=== PATIENT | female | born 1960 | race Caucasian/White ===

== ENCOUNTER 2017-06-09 06:40 | Day surgery (SDC) | payer OTHER ==
[~2017-06-09] VITALS: Ht 157.5 cm; Wt 77.1 kg
[~2017-06-09 06:40] MED LIST: ADVIL200 M1 PO; AZITHROMYCIN250 MG PO; GUAIFENESIN-CO118 ML PO; IRON325 M1; LEVOTHROID25 MCG PO; LEVOTHYROXINE50 MCG PO; NORCO 10-325 T1 EACH PO; NYQUIL D COLD295 ML PO; PEPTO-BISM262 MG/15 PO; PERCOCET 5-3251 EACH PO; PERCOCET 7.5-31 EACH PO; PRILOSEC20 MG PO; PROAIR HFA8.5 GM IH; VICODIN 5-3001 EACH PO; VITAMIN B COMP1 EACH PO; ZOFRAN8 MG PO; ZOLOFT100 MG PO; [UNRECOGNIZED DRUG - OTHER] PO
[2017-06-09] MEDS ORDERED: SERTRALINE HCL25 MG PO (06:50)
[2017-06-09] MEDS ORDERED: HYDROCHLOROTHIA25 MG PO (06:51)
[2017-06-09] MEDS ORDERED: SPIRIVA18 MCG INH (06:52)
[2017-06-09] MEDS ORDERED: VOLTAREN100 GM TOP (06:52)
[2017-06-09] MEDS ORDERED: VENTOLIN HFA18 GM INH (06:52)
--- NOTE | 2017-06-09 08:05 | NUR ---
PRODUCTION ZONE LEADER ORDERS ABLUTEROL BREATHING TREATMENT. GIVEN ORDERED. CALL LIGHT WITHIN REACH. AT BEDSIDE. BED RAILS UP.
--- NOTE | 2017-06-09 08:41 | NUR ---
06/09/17 0841 Tammie Glover 0830-PATIENT ARRIVED TO PACU ON 4L NC O2 SAT 97% PATIENT REACTIVE OPENS EYES. ST. PATIENT HAS COUGH. 0835-PATIENT AWAKE RA O2 SAT 94% PATIENT REPORTS HAS HAD STOMACH PAIN AND SWELLING ASKING FOR PAIN MEDICATION "SINCE MAEVE ASSOCIATE COUNSEL CAN'T PRESCRIBE HER ANY" DISCUSSED AIR INTO COLON AND PASSING FLATUS.
--- NOTE | 2017-06-09 19:17 | EKG ---
[facility] [address] [facility] [place] [address] Signed Normal sinus rhythm Normal ECG No previous ECGs available Confirmed by MARJORIE LYN MD ([id number]) on 06/09/2017 7:17:10 PM Electronically Signed By: MARJORIE LYN MD 06/09/17 191 PATIENT NAME: JORDON RICO Electrocardiogram DATE OF : 60 PHYSICIAN: MARJORIE LYN MD REPORT #: [id number] REPORT IS CONFIDENTIAL AND NOT TO BE RELEASED WITHOUT AUTHORIZATION
--- NOTE | 2017-06-10 07:24 | NUR ---
PT ALERT, ORIENTED AND SUPPORTED BY HER . ROUTINE SCOPE-HER FIRST. I NOTED SOME ANXIOUSNESS EXPLAINED THE PROCESS FOR TODAY, PT REQUESTED PRAYER. WILL FOLLOW NEEDED
--- NOTE | 2017-06-16 09:25 | OR ---
[facility] [address] [place], [place] [address] Signed DATE OF OPERATION: 06/09/2017 SURGEON: Scot Reddy MD PREOPERATIVE DIAGNOSES: 1. Mother with a history of colonic polyps in her 50s or 60s. 2. Generalized abdominal pain. 3. Constipation and bloating. 4. Weight gain of 20 pounds. POSTOPERATIVE DIAGNOSES: 1. Moderate internal and external hemorrhoids. 2. Minimal sigmoid diverticulosis. 3. 4 mm polyp at 15 cm. PROCEDURE: Colonoscopy with hot biopsy. ESTIMATED BLOOD LOSS: None. INDICATIONS: Jordon is a 57-year-old female, who over the last year so has had generalized abdominal pain, constipation, and bloating. She has gained about 20 pounds. She also has a family history of colonic polyps in her mother in her 50s or 60s. In addition, Jordon about a year ago has been drug free. She is very proud of that obviously. She also has significant medical history including her COPD. She ended up having a CT scan in November 2015, and it was unremarkable other than her diverticulosis. Given her findings, she was asked to see me for a colonoscopy. In the office, I gave her a pamphlet on colonoscopy and we looked at that together along with the risks including, but not limited to, gas bloating, crampy abdominal pain, bleeding, perforation, requiring surgery, and miss-diagnosis. We also discussed the need for IV conscious sedation given her advanced medical issues including her COPD. We asked that anesthesia provider help us with increased monitoring and sedation with propofol. In the end that proved to be a moore decision. Jordon had expressed understanding and wished to proceed. PROCEDURE NOTE: Jordon was taken into our endoscopy suite and placed in the left lateral decubitus position. Preoperatively, she was given a breathing treatment for her COPD. Nevertheless, she continued to cough throughout the entire procedure. She was given IV Electronically Signed By: SCOT REDDY MD 06/09/17 1113 Electronically Signed By: SCOT REDDY MD 06/23/17 1842 PATIENT NAME: JORDON RICO OPERATIVE REPORT DATE OF : 60 PHYSICIAN: SCOT REDDY MD REPORT #: [id number] REPORT IS CONFIDENTIAL AND NOT TO BE RELEASED WITHOUT AUTHORIZATION [facility] [address] [place] [id number] Signed sedation with propofol per our nurse insurance analyst. Digital rectal exam was performed and she did have some minimal to moderate external hemorrhoids. Her sphincter tone was good. The adult colonoscope was introduced and advanced under direct visualization with camera without difficulty. Fortunately, was technically easy to pass the scope. Her prep was good. The appendiceal orifice and ileocecal valve were easily identified. The scope was then slowly withdrawn. She does have a few diverticula in the sigmoid colon. They were moderate in size, minimal number, and scattered about. At the top of the rectum at 15 cm was a small polyp, which we removed with a hot biopsy forceps. The scope was then retroflexed in the rectum and sure enough, she does have moderate internal hemorrhoid columns as well. After this, the gas was suctioned out and the colonoscope removed. Jordon tolerated the procedure quite well. RECOMMENDATIONS: I will see Jordon back in my office in 7 to 14 days to review her colonoscopy report and pathology report. Scot Reddy MD ALB/MODL /[id number] cc: AMADA Herzog MD Timothy Davidson, MD Electronically Signed By: SCOT REDDY MD 06/09/17 1113 Electronically Signed By: SCOT REDDY MD 06/23/17 1842 PATIENT NAME: JORDON RICO OPERATIVE REPORT DATE OF : 60 PHYSICIAN: SCOT REDDY MD REPORT #: [id number] REPORT IS CONFIDENTIAL AND NOT TO BE RELEASED WITHOUT AUTHORIZATION
== END 2017-06-09 09:07 | disposition home or self-care (01) ==
LOC: DS 06:40
PROVIDERS: Colon & Rectal Surgery
PROC: 0DBE8ZX Excision of Large Intestine, Via Natural or Artificial Opening Endoscopic, Diagnostic (ICD-10-PCS; principal; 2017-06-09 07:30)
DX: K63.5 Polyp of colon (principal); K64.4 Residual hemorrhoidal skin tags; K64.8 Other hemorrhoids; K57.30 Diverticulosis of large intestine without perforation or abscess without bleeding; F32.9 Major depressive disorder, single episode, unspecified; E89.0 Postprocedural hypothyroidism; J44.9 Chronic obstructive pulmonary disease, unspecified; Z90.89 Acquired absence of other organs; Z90.710 Acquired absence of both cervix and uterus; Z98.890 Other specified postprocedural states; Z87.891 Personal history of nicotine dependence; Z88.8 Allergy status to other drugs, medicaments and biological substances
CPT/HCPCS: 00810; 93005; 93010; J2704; J7120

== ENCOUNTER 2017-12-30 21:14 | Emergency (ER) | payer OTHER ==
[~2017-12-30] VITALS: Ht 157.5 cm; Wt 77.1 kg
[~2017-12-30 21:14] MED LIST changes: +HYDROCHLOROTHIA25 MG PO; +SERTRALINE HCL25 MG PO; +SPIRIVA18 MCG INH; +VENTOLIN HFA18 GM INH; +VOLTAREN100 GM TOP
== END 2017-12-31 00:37 | disposition home or self-care (01) ==
LOC: ED 21:14
DX: R07.89 Other chest pain (principal); I10 Essential (primary) hypertension; J44.9 Chronic obstructive pulmonary disease, unspecified; F32.9 Major depressive disorder, single episode, unspecified; Z88.8 Allergy status to other drugs, medicaments and biological substances; Z87.891 Personal history of nicotine dependence; Z79.899 Other long term (current) drug therapy
CPT/HCPCS: 71045; 71260; 74177; 80053; 81001; 83690; 85025; 85379; 96361; 96374; 96375; 99284; J1170; J1885; J2405; J7030; Q9967

== ENCOUNTER 2018-03-06 18:03 | Emergency (ER) | payer OTHER ==
[~2018-03-06] VITALS: Ht 157.5 cm; Wt 77.1 kg
--- OUTSIDE RECORDS SUMMARY | ~2018-03-06 | XMS | Clinical Summary ---
Demographics + + + | Address | [address] | | | [place] [address] | + + + | Home Phone | | + + + | Preferred Language | Unknown | + + + | Marital Status | Legally | + + + | Evangelical Affiliation | Unknown | + + + | Race | Unknown | + + + | Ethnic Group | Unknown | + + + Author + + + | Author | [facility] | | | and [place] | + + + | Organization | [facility] | | | and [place] | + + + | Address | Unknown | + + + | Phone | Unavailable | + + + Support + + +---------+ + | Name | Relationship | Address | Phone | + + +---------+ + | Jf Stone | ECON | Unknown | | + + +---------+ + Care Team Providers + +------+ + | Care Grants Specialist Name | Role | Phone | + +------+ + | Jorge Correa NP | PP | | + +------+ + Allergies + + + + + + | Active Allergy | Reactions | Severity | Noted | Comments | | | | | Date | | + + + + + + | Promethazine | Swelling | High | 05/04/20 | Tongue swelling | | | | | 17 | | + + + + + + Current Medications + + +---------+---------+------+------+-------+ | Prescription | Sig. | Disp. | Refills | Star | End | Statu | | | | | | t | Date | s | | | | | | Date | | | + + +---------+---------+------+------+-------+ | tiotropium | Inhale 2 puffs into | | | | | Activ | | (SPIRIVA RESPIMAT) | the lungs Daily. | | | | | e | | 1.25 mcg/puff | | | | | | | | inhaler | | | | | | | + + +---------+---------+------+------+-------+ | | Take 25 mg by mouth | | | | | Activ | | hydroCHLOROthiazide | Three times a week. | | | | | e | | 25 mg tablet | | | | | | | + + +---------+---------+------+------+-------+ | albuterol | Inhale 2 puffs into | | | | | Activ | | (VENTOLIN HFA) 90 | the lungs every 4 | | | | | e | | mcg/puff inhaler | hours as needed for | | | | | | | | Wheezing. | | | | | | + + +---------+---------+------+------+-------+ | sertraline | Take 150 mg by mouth | | | | | Activ | | (ZOLOFT) 100 mg | Daily. | | | | | e | | tablet | | | | | | | + + +---------+---------+------+------+-------+ | omeprazole | Take 20 mg by mouth | | | | | Activ | | (PRILOSEC) 20 mg | every morning | | | | | e | | capsule | (before breakfast). | | | | | | + + +---------+---------+------+------+-------+ | diclofenac | Apply 4 g topically | | | | | Activ | | (VOLTAREN) 1% GEL | 3 times daily. | | | | | e | + + +---------+---------+------+------+-------+ | docusate sodium | Take 100 mg by mouth | | | | | Activ | | (COLACE) 100 mg | Daily as needed for | | | | | e | | capsule | Constipation. | | | | | | + + +---------+---------+------+------+-------+ | ADVAIR HFA 115-21 | INHALE TWO PUFFS BY | 1 | 3 | 05/0 | | Activ | | MCG/ACT inhaler | MOUTH TWICE DAILY | Inhaler | | 9/20 | | e | | | | | | 18 | | | + + +---------+---------+------+------+-------+ | levothyroxine | Take 100 mcg by | | | 07/2 | | Activ | | (SYNTHROID) 100 mcg | mouth every morning | | | 0/20 | | e | | tablet | (before breakfast). | | | 18 | | | + + +---------+---------+------+------+-------+ Active Problems + + + | Problem | Noted Date | + + + | COPD, moderate (HCC) | 05/04/2017 | + + + Encounters +--------+---------+ + + + | Date | Type | Specialty | Care Team | Description | +--------+---------+ + + + | 01/17/ | Office | | Guzman Acosta, | COPD, moderate (HCC) | | 2017 | Visit | | MD | (Primary Dx) | +--------+---------+ + + + | 12/20/ | Office | | Guzman Acosta, | COPD, moderate (HCC) | | 2017 | Visit | | MD | (Primary Dx); Need | | | | | | for pneumococcal | | | | | | vaccine | +--------+---------+ + + + from Last 3 Months Immunizations + + + + | Name | Dates Previously Given | Next Due | + + + + | INFLUENZA PF 4Y OR | 05/04/2017 | | | >,QUAD DERIVED FROM | | | | TISS-CULT | | | + + + + | INFLUENZA PF | 05/12/2016 | | | QUAD(PED/ADOL/ADULT) | | | | ,PSKT or VIAL | | | + + + + | PNEUMOCOCCAL | 05/18/2017 | | | CONJUGATE 13-VALENT | | | | (PCV13) | | | + + + + | PNEUMOCOCCAL | 12/20/2017 | | | POLYSACCHARIDE | | | | 23-VALENT (PPSV23) | | | + + + + Family History + + +------+ + | Medical History | Relation | Name | Comments | + + +------+ + | No Known Problems | Brother | | | + + +------+ + | No Known Problems | Brother | | | + + +------+ + | Cancer | Father | | primary unknown | + + +------+ + | COPD | Mother | | | + + +------+ + | Cancer | Mother | | breast | + + +------+ + | Suicide | Sister | | | + + +------+ + + +------+ + + | Relation | Name | Status | Comments | + +------+ + + | Brother | | Alive | | + +------+ + + | Brother | | Alive | | + +------+ + + | Father | | | | + +------+ + + | Mother | | Alive | | + +------+ + + | Sister | | | | + +------+ + + Social History + + + +--------+ + | Tobacco Use | Types | Packs/Day | Years | Date | | | | | Used | | + + + +--------+ + | Former Smoker | Cigarettes | 1 | | 12/03/1971 - | | | | | | 07/04/2006 | + + + +--------+ + + +---+---+---+ | Smokeless Tobacco: | | | | | Never Used | | | | + +---+---+---+ + + | Tobacco Cessation: Counseling Given: No | + + + + +---------+ + | Alcohol Use | Drinks/We | oz/Week | Comments | | | ek | | | + + +---------+ + | No | | | 05/04/17: Completed alcohol rehab | + + +---------+ + + + + | Sex Assigned at | Date Recorded | | | | + + + | Not on file | | + + + Last Filed Vital Signs + + + + | Vital Sign | Reading | Time Taken | + + + + | Blood Pressure | 146/92 | 01/17/2018 1321 PDT | + + + + | Pulse | 85 | 01/17/2018 1321 PDT | + + + + | Temperature | - | - | + + + + | Respiratory Rate | - | - | + + + + | Oxygen Saturation | 93% | 01/17/20181320 PDT | + + + + | Inhaled Oxygen | - | - | | Concentration | | | + + + + | Weight | 82.8 kg (182 lb 8.7 | 01/17/20181320 PDT | | | oz) | | + + + + | Height | 157.5 cm (5' 2") | 01/17/20181320 PDT | + + + + | Body Mass Index | 33.39 | 01/17/2018 1321 PDT | + + + + Plan of Treatment +--------+---------+ + + + | Date | Type | Specialty | Care Team | Description | +--------+---------+ + + + | 07/25/ | Office | | Guzman Acosta, | | | 2019 | Visit | | MD Myranda Ramirez | | | | | | [place], [place] | | | | | | [place] | | | | | | [id number] | | | | | | | | +--------+---------+ + + + + + + + + | Health Maintenance | Due Date | Last Done | Comments | + + + + + | Hepatitis C | | | | | Screening | 0 | | | + + + + + | Vaccine: | | | | | Dtap/Tdap/Td (1 - | 9 | | | | Tdap) | | | | + + + + + | Cervical Cancer | | | | | Screening (Pap) | 0 | | | + + + + + | BREAST CANCER | | | | | SCREENING (MAMM Q2 | 0 | | | | YEARS 50-74) | | | | + + + + + | Colorectal Cancer | | | | | Screening | 0 | | | | (Colonoscopy) | | | | + + + + + | Vaccine: Influenza | | 05/04/2017, 05/12/2016 | | | (#1) | 8 | | | + + + + + | Vaccine: | Completed | 12/20/2017 | | | Pneumococcal 19-64 | | | | | (PPSV23 only) Medium | | | | | Risk | | | | + + + + + Results Not on filefrom Last 3 Months Insurance + +--------+ +--------+ +---------+ | Payer | Benefi | Subscriber | Type | Phone | Address | | | t Plan | ID | | | | | | / | | | | | | | Group | | | | | + +--------+ +--------+ +---------+ | [employer] | [employer] | [id number] | Medica | [phone] | | MEDICAID HMO | HEALTH | | id | [address]21 | | | | [place] | | | | | | | [place] | | | | | + +--------+ +--------+ +---------+ + +--------+ +--------+ + + | Guarantor Name | Accoun | Relation to | Date | Phone | Billing Address | | | t Type | Patient | of | | | | | | | | | | + +--------+ +--------+ + + | JORDON RICO | Person | Self [birth year] Home: | [address] | | | al/Fam | | 1960 | [phone] | [address], | | | param | | | [address] | [place] [phone] | + +--------+ +--------+ + +
--- OUTSIDE RECORDS SUMMARY | ~2018-03-06 | XMS | Clinical Summary ---
Demographics + + + | Address | [address] | | | [place] [address] | + + + | Home Phone | | + + + | Preferred Language | Unknown | + + + | Marital Status | Legally | + + + | Evangelical Affiliation | Unknown | + + + | Race | Unknown | + + + | Ethnic Group | Unknown | + + + Author + + + | Author | [facility] | | | and [place] | + + + | Organization | [facility] | | | and [...] Team Providers + +------+ + | Care Lead Handler Name | Role | Phone | + [...] [place] | | | | | | [id number] | | | | | | | [...] | [employer] | [employer] | [id number] | Medica | [phone] | | MEDICAID HMO | HEALTH [...] Self | [birth year] | Home: | [address] | | | al/Fam | | 1960 | [phone] | [address], | | | param | | | [address] | [place] [address] | + +--------+ +--------+ + +
--- OUTSIDE RECORDS SUMMARY | ~2018-03-06 | XMS | Encounter Summary ---
Demographics + + + | Address | [address] | | | [place] [address] | + + + | Home Phone | | + + + | Preferred Language | Unknown | + + + | Marital Status | Legally | + + + | Islam Affiliation | Unknown | + + + | Race | Unknown | + + + | Ethnic Group | Unknown | + + + Author + + + | Author | [facility] | | | and [place] | + + + | Organization | [facility] | | | and [...] Team Providers + +------+ + | Care Web Art Director Name | Role | Phone | + +------+ + | Jorge Correa NP | PCP | | + +------+ + Reason for Visit +--------+ + | Reason | Comments | +--------+ + | COPD | 6 mo follow up | +--------+ + Evaluate & Treat (Routine) + +--------+ + + + + | Status | Reason | Specialty | Diagnoses / | Referred By | Referred To | | | | | Procedures | Contact | Contact | + +--------+ + + + + | Authorized | | Pulmonary | Diagnoses | Madeline, | Dave, | | | | Disease / | Chronic | Jorge Pack, | MD Guzman | | | | Pulmonology | obstructive | [address] | [address] | | | | | pulmonary | [place] | [place], Level | | | | | disease, | [address], | [place] | | | | | unspecified | [address] | [place], [place] | | | | | ([facility]) | [place], | [address] Phone: | | | | | Procedures | [place] [address] | [phone] | | | | | F/U APPT DR | Phone: | Fax: | | | | | BRODIE DAVE | [phone] | [phone] | | | | | 12/20/17 | Fax: | | | | | | | [phone] | | + +--------+ + + + + Encounter Details +--------+---------+ + + + | Date | Type | Department | Care Team | Description | +--------+---------+ + + + | 12/20/ | Office | [facility] | Acosta Guzman, | COPD, moderate (HCC) | | 2018 | Visit | PULMONARY [address] | MD [address] | (Primary Dx); Need | | | | [place], | [place], [address] | for pneumococcal | | | | [place] [address] | [place], [place] | vaccine | | | | [phone] | [address] | | | | | | | | +--------+---------+ + + + Social History + + + [...] | | | + +---+---+---+ + + +---------+ + | Alcohol Use [...] on file | | + + + as of this encounter Last Filed Vital Signs + + + + | Vital Sign | Reading | Time Taken | + + + + | Blood Pressure | 114/88 | 12/20/2017953 PDT | + + + + | Pulse | 97 | 12/20/2017953 PDT | + + + + | Temperature | - | - | + + + + | Respiratory Rate | - | - | + + + + | Oxygen Saturation | 95% | 12/20/2017953 PDT | + + + + | Inhaled Oxygen | - | - | | Concentration | | | + + + + | Weight | 81.5 kg (179 lb 10.8 | 12/20/2017953 PDT | | | oz) | | + + + + | Height | 157.5 cm (5' 2") | 12/20/2017953 PDT | + + + + | Body Mass Index | 32.86 | 12/20/2017953 PDT | + + + + in this encounter Instructions Patient Instructions - Guzman Acosta MD - 12/20/2017 1000 PDT Fluticasone; Salmeterol inhalation aerosol Brand Name: Advair HFA What is this medicine? FLUTICASONE; SALMETEROL (floo TIK a sone; travon ME te role) inhalation is a combination of tw o medicines that decrease inflammation and help to open up the airways of your lungs. It is used to treat asthma. Do NOT use for an acute asthma attack. How should I use this medicine? This medicine is inhaled through the mouth. Follow the directions on the prescription label . Shake well for 5 seconds before each use. After using the inhaler, rinse your mouth with w ater. Make sure not to swallow the water. Take your medicine at regular intervals. Do not ta ke your medicine more often than directed. Do not stop taking except on your doctor's advice . Make sure that you are using your inhaler correctly. Ask you doctor or health care provide r if you have any questions. A special MedGuide will be given to you by the pharmacist with each prescription and refill . Be sure to read this information carefully each time. Talk to your vice president process regarding the use of this medicine in children. While this drug m ay be prescribed for children as young as 12 years of age for selected conditions, precautio ns do apply. What side effects may I notice from receiving this medicine? Side effects that you should report to your doctor or health healthcare liaison as soon as p ossible: allergic reactions like skin rash or hives, swelling of the face, lips, or tongue changes in vision chest pain feeling faint or lightheaded, falls fever or chills irregular heartbeat Side effects that usually do not require medical attention (report to your doctor or health healthcare liaison if they continue or are bothersome): coughing, hoarseness, throat irritation headache nervousness stomach problems stuffy nose tremors What may interact with this medicine? Do not take this medicine with any of the following medications: MAOIs like Carbex, Eldepryl, Marplan, Nardil, and Parnate This medicine may also interact with the following medications: aminophylline or theophylline antiviral medicines for HIV or AIDS diuretics medicines for colds medicines for depression or emotional conditions medicines for fungal infections like ketoconazole and itraconazole medicines for the heart like metoprolol, propanolol medicines for weight loss including some herbal products other medicine for breathing problems pimozide some antibiotics like clarithromycin, erythromycin, levofloxacin, linezolid, and telithr omycin vaccines What if I miss a dose? If you miss a dose, use it as soon as you remember. If it is almost time for your next dose , use only that dose and continue with your regular schedule, spacing doses evenly. Do not u se double or extra doses. Where should I keep my medicine? Keep out of the reach of children. Store at room temperature between 15 and 30 degrees C (59 and 86 degrees F). Store inhaler with the mouthpiece down. Throw away the inhaler when the dose indicator reads 000, or after the expiration date, whichever comes first. What should I tell my health care provider before I take this medicine? They need to know if you have any of these conditions: bone problems immune system problems diabetes heart disease or irregular heartbeat high blood pressure infection pheochromocytoma seizures thyroid disease worsening asthma an unusual or allergic reaction to fluticasone; salmeterol, other corticosteroids, other medicines, foods, dyes, or preservatives or trying to get breast-feeding What should I watch for while using this medicine? Visit your doctor for regular check ups. Tell your doctor or health healthcare liaison if yo ur symptoms do not get better. If your symptoms get worse or if you need your short-acting i nhalers more often, call your doctor right away. Do not use this medicine more than every 12 hours. If you have asthma, be aware that using this medicine may increase your risk of dying from asthma-related problems. Talk to your doctor about the risks and benefits of taking this med icine. NEVER use this medicine for an acute asthma attack. This medicine may increase your risk of getting an infection. Tell your doctor or health ca re professional if you are around anyone with measles or chickenpox, or if you develop sores or blisters that do not heal properly. NOTE:This sheet is a summary. It may not cover all possible information. If you have questi ons about this medicine, talk to your doctor, pharmacist, or health care provider. Copyright 2017 [employer] in this encounter Progress Notes Guzman Acosta MD - 12/20/2017 1000 PDTFormatting of this note may be different from adenike martin. Pulmonary Follow Up 12/20/2017 HPI Caro Alvarez is a 57 y.o. female patient of Jorge Correa NP here today for follo w up of Gold Stage II COPD. The last pulmonary clinic visit was on 06/21/17. Since their last appointment they feel like their breathing issues have been stable. They have not had any acute pulmonary illnesses. The patient has not required a prednisone taper since our last clinic appointment. Likewise Caro has not required antibiotics for a COPD exacerbation since our last clinic appointment. The patient is currently on a daily regimen of Advair, Spiriva and Ventolin for their COPD. for unclear reasons the patient is using Advair on an as-needed basis. It appears that Ad vair was substituted for Symbicort in the past 6 months. They do not feel like this medicat ion regimen is/are controlling their symptoms. Currently she is using their short acting br onchodilator, Ventolin, 2 times a day. Currently the patient is able to walk 2-3 blocks at their own pace on level ground before d eveloping dyspnea. They are exercising regularly. Their typical exercise consists of walking at work. Works at [employer]. Caro are not enrolled in cardiac/pulmonary rehabilitation. They have not completed pulmonary rehabilitation in the past. Caro does cough chronically and does produce mucous. The mucous is white in color. They padgett ve not had hemoptysis since our last appointment. She has not been evaluated for nocturnal oxygen. They have not reported recent symptoms of nasal congestion, runny nose or post nasal drip. The patient have received this year's influenza vaccination. They are up to date with thei r Prevnar 13. Patient denies tobacco use. She notes increased abdominal girth and weight over the last 3 months. The patient's weight is up 8 pounds and 6 ounces since her last clinic appointment . Right upper leg numbness is also noted. I have suggested to the patient that she obtain a primary care provider to discuss her incr eased weight and right lower extremity issues. If her primary care provider cannot be locat ed in her community I have asked her to let us know and we will facilitate finding her 1 her e in [place]. Past Medical History Past Medical History: Diagnosis Date Acid reflux disease Alcohol abuse Arthritis Asthma Bipolar affective disorder (HCC) Chronic bronchitis (HCC) COPD (chronic obstructive pulmonary disease) (HCC) Depression Diverticulosis ACOSTA (dyspnea on exertion) Hepatitis C Hyperlipidemia Hypertension Hypothyroidism Insomnia due to mental condition Leg pain Obesity Umbilical hernia Social History: She reports that she quit smoking about 11 years ago. Her smoking use included Cigarettes. She started smoking about 46 years ago. She smoked 1.00 pack per day. She has never used smo keless tobacco. She reports that she does not drink alcohol or use drugs. Allergies: Allergies Allergen Reactions Promethazine Swelling Tongue swelling Medications: Current Outpatient Prescriptions: ADVAIR HFA 115-21 MCG/ACT inhaler, INHALE TWO PUFFS BY MOUTH TWICE DAILY, Disp: 1 Inha ler, Rfl: 3 albuterol (VENTOLIN HFA) 90 mcg/puff inhaler, Inhale 2 puffs into the lungs every 4 ho urs as needed for Wheezing., Disp: , Rfl: diclofenac (VOLTAREN) 1% GEL, Apply 4 g topically 3 times daily., Disp: , Rfl: docusate sodium (COLACE) 100 mg capsule, Take 100 mg by mouth Daily as needed for Cons tipation., Disp: , Rfl: hydroCHLOROthiazide 25 mg tablet, Take 25 mg by mouth Three times a week., Disp: , Rfl : levothyroxine (SYNTHROID) 50 mcg tablet, Take 50 mcg by mouth every morning (before br eakfast)., Disp: , Rfl: omeprazole (PRILOSEC) 20 mg capsule, Take 20 mg by mouth every morning (before breakfa st)., Disp: , Rfl: sertraline (ZOLOFT) 100 mg tablet, Take 150 mg by mouth Daily., Disp: , Rfl: tiotropium (SPIRIVA RESPIMAT) 1.25 mcg/puff inhaler, Inhale 2 puffs into the lungs Hanna ly., Disp: , Rfl: Immunizations: Immunization History Administered Date(s) Administered INFLUENZA PF 4Y OR >,QUAD DERIVED FROM TISS-CULT 05/04/2017 INFLUENZA PF QUAD(PED/ADOL/ADULT),PSKT or VIAL 05/12/2016 PNEUMOCOCCAL CONJUGATE 13-VALENT (PCV13) 05/18/2017 Objective BP 114/88 | Pulse 97 | Ht 1.575 m (5' 2") | Wt 81.5 kg (179 lb 10.8 oz) | SpO2 95% | B CA 32.86 kg/m Physical Exam Constitutional: She is oriented to person, place, and time and well-developed, well-nourish ed, and in no distress. HENT: Head: Normocephalic. Nose: No mucosal edema. Right sinus exhibits no frontal sinus tenderness. Left sinus exhibi ts no frontal sinus tenderness. Mouth/Throat: Oropharynx is clear and moist and mucous membranes are normal. Neck: Trachea normal. Neck supple. No JVD present. Cardiovascular: Normal rate, regular rhythm, S1 normal and S2 normal. No murmur heard. Pulmonary/Chest: No accessory muscle usage. No respiratory distress. She has decreased venecia th sounds in the right lower field and the left lower field. She has no wheezes. She has no rhonchi. She has no rales. Musculoskeletal: She exhibits no edema. Lymphadenopathy: She has no cervical adenopathy. Neurological: She is alert and oriented to person, place, and time. Gait normal. Skin: Skin is warm and intact. No cyanosis. Nails show no clubbing. Psychiatric: Affect normal. Data: None Assessment 1. COPD Gold stage II. At the time the patient's last appointment 6 months ago she was using a combination of Spiriva, Symbicort and as needed Ventolin. Over the interim Advair w as substituted for Symbicort. Unfortunately however the patient began using Advair as neede d. Some worsening of symptoms has developed. Her weight is also up 8 or so pounds over the st 6 months. Increased abdominal girth is likely impacting diaphragmatic function. I have recommended to the patient that she reinitiate Advair and a scheduled fashion. Caro is also in need of a Pneumovax today. Plan 1. Pneumovax 23 today. 2. Initiate Advair HFA 2 puffs twice daily. Patient counseled the rinse mouth out after A dvair use. 3. Pulmonary clinic follow-up appointment to assess the status of her symptoms in 4 weeks' time. CC: Zachariah Giron this encounter Plan of Treatment +--------+---------+ + + + | Date | Type | Specialty | Care Team | Description | +--------+---------+ + + + | 07/25/ | Office | Pulmonology | Guzman Acosta, | | | 2018 | Visit | | MD Myranda Ramirez | | | | | | [place], [place] [address] | | | | | | [place] | | | | | | [address] | | | | | | | | +--------+---------+ + + + as of this encounter Visit Diagnoses + + | Diagnosis | + + | COPD, moderate (HCC) - Primary | + + | Chronic airway obstruction, not elsewhere classified | + + | Need for pneumococcal vaccine | + + | Need for prophylactic vaccination against streptococcus pneumoniae (pneumococcus) | + +
--- OUTSIDE RECORDS SUMMARY | ~2018-03-06 | XMS | Encounter Summary ---
Demographics + + + | Address | [address] | | | [place] [address] | + + + | Home Phone | | + + + | Preferred Language | Unknown | + + + | Marital Status | Legally | + + + | Moravian Affiliation | Unknown | + + + | Race | Unknown | + + + | Ethnic Group | Unknown | + + + Author + + + | Author | [facility] | | | and [place] | + + + | Organization | [facility] | | | and [...] Team Providers + +------+ + | Care Waste Paper Hammermill Operator Name | Role | Phone | + +------+ + | Jorge Correa NP | PCP | | + +------+ + Reason for Visit +--------+ + | Reason | Comments | +--------+ + | COPD | 1 month follow up | +--------+ + Evaluate & [...] | | | Pulmonology | obstructive | EDUCATION DIRECTOR [address] | | | | | pulmonary | [place] | [place], Level | | | | | disease, | [address], | [place] | | | | | unspecified | [address] | [place] | | | | | ([facility]) | [place], | [address] Phone: | | | | | Procedures | [place] [address] | [phone] | | | | | F/U APPT DR | Phone: | Fax: | | | | | BRODIE ACOSTA | [phone] | [phone] | | | | | 12/20/17 | Fax: | | | | | | | [phone] | | + +--------+ + + + + Encounter Details +--------+---------+ + + + | Date | Type | Department | Care Team | Description | +--------+---------+ + + + | 01/17/ | Office | [facility] | Guzman Acosta, | COPD, moderate (HCC) | | 2018 | Visit | PULMONARY [address] | MD [address] | (Primary Dx) | | | | [place], | [place], [place] | | | | | [place] [address] | [place], [place] | | | | | [phone] | [address] | | | | | | | [...] + | Blood Pressure | 146/92 | 01/17/20181320 PDT | + + + + | Pulse | 85 | 01/17/20181320 PDT | + + + [...] | 82.8 kg (182 lb 8.7 | 01/17/2018 1321 PDT | | | oz) | | + + + + | Height | 157.5 cm (5' 2") | 01/17/2018 1321 PDT | + + + + | Body Mass Index | 33.39 | 01/17/2018 1321 PDT | + + + + in this encounter Instructions Patient Instructions - Guzman Acosta MD - 01/17/2018 1330 PDTFormatting of this note m ay be different from the original. Please get FluVaccines in March 2018 The flu (influenza) is caused by a virus that is easily spread. A fluvaccine protects you and othersfrom the flu. It s best to get a flu shot every year in late summer or early fall, as soon as the vaccine is available in your area. You can get it at your healthcare pr ovider s office or a health clinic. Pharmacies, senior centers, and workplaces often offer flu shots, too. If you want to know if your providerhas the flu vaccine available, or if you have other questions, ask your healthcare provider. Flu facts The flu shot won t give you the flu. The virus that is in the flu shot has been killed (inactivated). The flu can be dangerous even life-threatening. Every year thousands of people fro m complications from the flu. The flu is caused by a virus. It can t be treated with antibiotics. Influenza is not the same as stomach flu, the 24-hour virus that causes vomiting and adeel rrhea. The stomach flu most likely happens because of a GI (gastrointestinal) infection, not the flu. You need to get a flu shot each year. Flu symptoms Flu symptoms tend to come on quickly. They include: Fever Headache Tiredness (fatigue) Cough Sore throat Runny nose Muscle aches Upset stomach and vomiting are not common for adults. Some symptoms such as tiredness and c ough may lastfor manyweeks. How a flu vaccine protects you There are many types (strains) of theflu virus. Medical experts predict which strains are most likely to make people sick each year. Flu shots are made from these strains. When you get a flu vaccine, killed (inactivated)viruses are injected into your body. These can t give you the flu. But they do cause your body to make antibodies to fight these flu strains. If you are exposed to the same strains later in the flu season, the antibodies will fight o ff the germs. Who should get the flu vaccine? The CDC recommends that infants over the age of 6 months and all children and adults should get aflu shot every year. Some people are at an increased risk of developing serious complications from the flu. It i s extremely important that these people get the vaccine. They include those with: Long-term heart and lung conditions Other serious health conditions such as: Endocrine disorders such as diabetes Kidney or liver disorders Weakened immune system from disease or medical treatment. For example, people with HIV o r AIDS, or those taking long-term steroids or medicines to treat cancer. Blood disorders such as sickle cell disease It is also very important that others who have an increased risk of being exposed to the fl u or are around people with increased risk for complications get the vaccine. This includes: Healthcare providers and other staff who provide care in hospitals, nursing homes, home health, and other facilities Household members, including children of people in high-risk groups Types of flu vaccines The flu vaccine is available as a regularand a high-strengthshot. Your healthcare provi prerna will recommend the vaccine that is best for you. Flu shot The flu shot is available in a few different forms. Your healthcare provider will determine which vaccine is right for you. There is a high-dose vaccine for those over age 65 and a va ccine for those with egg allergies. It is safe for most people. Talk with your provider if y ou have had: A severe allergic reaction to a previous flu vaccine Guillain-Farr syndrome. This is a severe paralyzing condition. Nasal spray The nasal spray isnotrecommended for the 8686-0630 flu season. The CDC says the nasal s pray did not seem to protect against the flu over the last several flu seasons. Date Last Reviewed: 05/14/201619997010-9997 [employer]. [address] [place] [address]. All righ ts reserved. This information is not intended as a substitute for professional medical care. Always follow your healthcare professional's instructions. in this encounter Progress Notes Guzman Acosta MD - 01/17/2018 1330 PDTFormatting of this note may be different from adenike martin. Pulmonary Follow Up 01/17/2018 HPI Caro Alvarez is a 57 y.o. female patient of Jorge Correa NP here today for follo w up of Gold Stage II COPD. The last pulmonary clinic visit was on 12/20/17. Since their last appointment they feel like their breathing issues have been decreasing. At the time the patient's last clinic appointm ent she was asked to begin using Advair twice a day and a scheduled fashion. Caro's main complaint is that of persistent though fluctuating right upper quadrant discom fort. Apparently she was recently in the emergency department in [place] in her follow-up appointment with her primary care provider was canceled. They have not had any acute pulmonary illnesses. The patient has not required a prednisone taper since our last clinic appointment. Likewise Caro has not required antibiotics for a COPD exacerbation since our last clinic appointment. The patient is currently on a daily regimen of Advair and Spiriva for their COPD. They do feel like this medication regimen is/are controlling their symptoms. Currently she is using their short acting bronchodilator, Ventolin, 1 times a day. Currently the patient is able to walk 3-4 blocks at their own pace on level ground before d eveloping dyspnea. They are not exercising regularly. Their typical exercise consists of wor garland at [employer]. Caro are not enrolled in cardiac/pulmonary rehabilitation. They have no t completed pulmonary rehabilitation in the past. Caro does cough chronically and does produce mucous. The mucous is yellow in color. They h ave not had hemoptysis since our last appointment. She has not been evaluated for nocturnal oxygen. They have not reported recent symptoms of nasal congestion, runny nose or post nasal drip. The patient have received this year's influenza vaccination. They are up to date with thei r Pneumovax and Prevnar 13. Patient remains abstinent tobacco. The patient's weight is up 3 pounds and 13 ounces since her last clinic appointment. Past Medical History Past Medical History: Diagnosis [...] week., Disp: , Rfl : levothyroxine (SYNTHROID) 100 mcg tablet, Take 100 mcg by mouth every morning (before breakfast)., Disp: , Rfl: omeprazole (PRILOSEC) 20 mg capsule, Take 20 mg by mouth every morning (before break st)., Disp: , Rfl: sertraline (ZOLOFT) 100 mg tablet, Take 150 mg by mouth Daily., Disp: , Rfl: tiotropium (SPIRIVA RESPIMAT) 1.25 mcg/puff inhaler, Inhale 2 puffs into the lungs Hanna ly., Disp: , Rfl: Immunizations: Immunization History Administered Date(s) Administered INFLUENZA PF 4Y OR >,QUAD DERIVED FROM TISS-CULT 05/04/2017 INFLUENZA PF QUAD(PED/ADOL/ADULT),PSKT or VIAL 05/12/2016 PNEUMOCOCCAL CONJUGATE 13-VALENT (PCV13) 05/18/2017 PNEUMOCOCCAL POLYSACCHARIDE 23-VALENT (PPSV23) 12/20/2017 Objective BP (!) 146/92 | Pulse 85 | Ht 1.575 m (5' 2") | Wt 82.8 kg (182 lb 8.7 oz) | SpO2 93% C omment: room air | BMI 33.39 kg/m Physical Exam Constitutional: She is oriented [...] COPD Gold stage II. At the time of the patient's last clinic appointment Caro was a sked to use Advair and a scheduled fashion in addition to Spiriva. The patient subsequently reports improvement of her symptoms. Ms. Alvarez is up-to-date with respect to her seasonal influenza vaccination, Prevnar and Pn eumovax. 2. Right upper quadrant discomfort in association with intermittent nausea. The patient apparently is in the process of following up with her primary care provider regarding these symptoms. Plan 1. Seasonal influenza vaccination is recommended for March 2018. 2. Patient will continue to use Advair twice daily and Spiriva once daily. Ventolin as ne eded. 3. The interval between pulmonary clinic follow-up appointments will be lengthened to 6 mo nths. CC: Zachariah Giron this encounter Plan of Treatment +--------+---------+ + + + | Date | Type | Specialty | Care Team | Description | +--------+---------+ + + + | 07/25/ | Office | Pulmonology | Guzman Acosta, | | | 2018 | Visit | | MD Whitmore Smith | | | | | | [place], Level II | | | | | | [place] | | | | | | [id number] | | | | | | | | +--------+---------+ + + + as of this encounter Visit Diagnoses + + | Diagnosis | + + | COPD, moderate (HCC) - Primary | + + | Chronic airway obstruction, not elsewhere classified | + +
--- OUTSIDE RECORDS SUMMARY | ~2018-03-06 | XMS | Encounter Summary ---
Demographics + + + | Address | [address] | | | [place] [address] | + + + | Home Phone | | + + + | Preferred Language | Unknown | + + + | Marital Status | Legally | + + + | Sikh Affiliation | Unknown | + + + | Race | Unknown | + + + | Ethnic Group | Unknown | + + + Author + + + | Author | [facility] | | | and [place] | + + + | Organization | [facility] | | | and [...] Team Providers + +------+ + | Care Facility Specialist Name | Role | Phone | [...] | | | Pulmonology | obstructive | MANAGER CHILD [address] | | | | | pulmonary | [place] | [place], Level | | | | | disease, | [address], | [place] | | | | | unspecified | [address] | [place] | | | | | ([facility]) | [place], | [address] Phone: | | | | | Procedures | [place] [address] | [phone] | | | | | F/U APPT DR | Phone: | Fax: | | | | | BRODIE ACOSTA | [phone] | [phone] | | | | | 12/20/17 | Fax: | | | | | | | [phone] | | + +--------+ + + + + Encounter Details +--------+---------+ + + + | Date | Type | Department | Care Team | Description | +--------+---------+ + + + | 01/17/ | Office | [facility] | Guzman Acosta, | COPD, moderate (HCC) | | 2018 | Visit | PULMONARY [address] | MD [address] | (Primary Dx) | | | | [place], | [place], [place] | | | | | [place] [address] | [place], [place] | | | | | [phone] | [address] | | | | | | | [...] spray The nasal spray isnotrecommended for the 0401-4056 flu season. The CDC says the nasal s pray did not seem to protect against the flu over the last several flu seasons. Date Last Reviewed: 05/14/201619994159-5909 [employer]. [address] [place] [address]. All righ ts reserved. This information is [...] was recently in the emergency department in [place] in her follow-up appointment with her primary [...] typical exercise consists of wor garland at [employer]. Caro are not enrolled in cardiac/pulmonary rehabilitation. [...] 2018 | Visit | | MD Whitmore Ranger | | | | | | [place], Level II | | | | | | [place] | | | | | | [phone] | | | | | | | | +--------+---------+ + + + as of this encounter Visit Diagnoses + + | Diagnosis | + + | COPD, moderate (HCC) - Primary | + + | Chronic airway obstruction, not elsewhere classified | + +
--- OUTSIDE RECORDS SUMMARY | ~2018-03-06 | XMS | Encounter Summary ---
Demographics + + + | Address | [address] | | | [place] [address] | + + + | Home Phone | | + + + | Preferred Language | Unknown | + + + | Marital Status | Legally | + + + | Orthodoxy Affiliation | Unknown | + + + | Race | Unknown | + + + | Ethnic Group | Unknown | + + + Author + + + | Author | [facility] | | | and [place] | + + + | Organization | [facility] | | | and [...] Team Providers + +------+ + | Care Medicaid Specialist Name | Role | Phone | [...] | | | Pulmonology | obstructive | CREW BOAT OPERATOR [address] | | | | | pulmonary | [place] | [place], Level | | | | | disease, | [address], | [place] | | | | | unspecified | [address] | [place], [place] | | | | | ([facility]) | [place], | [address] Phone: | | | | | Procedures | [place] [address] | [phone] | | | | | F/U APPT DR | Phone: | Fax: | | | | | BRODIE DAVE | [phone] | [phone] | | | | | 12/20/17 | Fax: | | | | | | | [phone] | | + +--------+ + + + + Encounter Details +--------+---------+ + + + | Date | Type | Department | Care Team | Description | +--------+---------+ + + + | 12/20/ | Office | [facility] | Acosta Guzman, | COPD, moderate (HCC) | | 2018 | Visit | PULMONARY [address] | [address] | (Primary Dx); Need | | | | [place], | [place], Level II | for pneumococcal | | | | [place] [address] | [place], [place] | vaccine | | | | [phone] | [address] | | | | | | | [...] information carefully each time. Talk to your senior cobol developer regarding the use of this medicine in children. While this drug m ay be prescribed for children as young as 12 years of age for selected conditions, precautio ns do apply. What side effects may I notice from receiving this medicine? Side effects that you should report to your doctor or health career transition specialist as soon as p ossible: allergic reactions like skin rash or hives, swelling of the face, lips, or tongue changes in vision chest pain feeling faint or lightheaded, falls fever or chills irregular heartbeat Side effects that usually do not require medical attention (report to your doctor or health career transition specialist if they continue or are bothersome): coughing, [...] check ups. Tell your doctor or health career transition specialist if yo ur symptoms do not get [...] consists of walking at work. Works at [employer]. Caro are not enrolled in cardiac/pulmonary rehabilitation. [...] facilitate finding her 1 her e in [place]. Past Medical History Past Medical History: Diagnosis [...] 10.8 oz) | SpO2 95% | B [place] 32.86 kg/m Physical Exam Constitutional: She is [...] [place] | | | | | | [place], [place] | | | | | | [place] | | | | | | [address] | | | | | | | [...]
== END 2018-03-06 20:52 | disposition home or self-care (01) ==
LOC: ED 18:03
DX: F10.129 Alcohol abuse with intoxication, unspecified (principal); J44.9 Chronic obstructive pulmonary disease, unspecified; I10 Essential (primary) hypertension; F32.9 Major depressive disorder, single episode, unspecified; Z87.891 Personal history of nicotine dependence; Z79.899 Other long term (current) drug therapy; Z79.51 Long term (current) use of inhaled steroids; Y90.8 Blood alcohol level of 240 mg/100 ml or more
CPT/HCPCS: 36415; 80053; 80176; 81001; 85025; 96374; 99284; G0480; J3411; J7030

== ENCOUNTER 2018-08-23 18:26 | Emergency (ER) | payer OTHER ==
[~2018-08-23] VITALS: Ht 157.5 cm; Wt 77.1 kg
[2018-08-23] MEDS ORDERED: PREDNISONE20 MG PO (20:20)
[2018-08-23] MEDS ORDERED: IPRAT-ALBUT 0.5-3 ML INH (20:20)
[2018-08-23] MEDS ORDERED: TRUNEB NEBULIZ1 EACH INH (20:22)
== END 2018-08-23 20:55 | disposition home or self-care (01) ==
LOC: ED 18:26
DX: J44.0 Chronic obstructive pulmonary disease with (acute) lower respiratory infection (principal); J20.9 Acute bronchitis, unspecified; I10 Essential (primary) hypertension; F32.9 Major depressive disorder, single episode, unspecified; Z86.19 Personal history of other infectious and parasitic diseases; Z90.710 Acquired absence of both cervix and uterus; Z88.8 Allergy status to other drugs, medicaments and biological substances; Z79.899 Other long term (current) drug therapy
CPT/HCPCS: 71046; 80053; 85025; 87502; 94640; 96361; 96374; 99284-25; G0480; J2930; J7030

== ENCOUNTER 2018-09-27 18:28 | Emergency (ER) | payer OTHER ==
[~2018-09-27] VITALS: Ht 157.5 cm; Wt 77.1 kg
--- OUTSIDE RECORDS SUMMARY | ~2018-09-27 | XMS | Clinical Summary ---
Demographics + + + | Address | [address] | | | [place] [address] | + + + | Home Phone | | + + + | Preferred Language | Unknown | + + + | Marital Status | Legally | + + + | Restorationist Affiliation | Unknown | + + + | Race | Unknown | + + + | Ethnic Group | Unknown | + + + Author + + + | Author | [facility] | | | and [place] | + + + | Organization | [facility] | | | [...] Team Providers + +------+ + | Care Damper Worker Name | Role | Phone | + [...] | + + + + + + Medications + + + +---------+------+------+-------+ | Medication | Sig | Dispensed | Refills | Star | End | Statu | | | | | | t | Date | s | | | | | | Date | | | + + + +---------+------+------+-------+ | tiotropium | Inhale 2 puffs into | | 0 | | | Activ | | (SPIRIVA RESPIMAT) | the lungs Daily. | | | | | e | | 1.25 mcg/puff | | | | | | | | inhaler | | | | | | | + + + +---------+------+------+-------+ | | Take 25 mg by mouth | | 0 | | | Activ | | hydroCHLOROthiazide | Three times a week. | | | | | e | | 25 mg tablet | | | | | | | + + + +---------+------+------+-------+ | albuterol | Inhale 2 puffs into | | 0 | | | Activ | | (VENTOLIN HFA) 90 | the lungs every 4 | | | | | e | | mcg/puff inhaler | hours as needed for | | | | | | | | Wheezing. | | | | | | + + + +---------+------+------+-------+ | sertraline | Take 150 mg by mouth | | 0 | | | Activ | | (ZOLOFT) 100 mg | Daily. | | | | | e | | tablet | | | | | | | + + + +---------+------+------+-------+ | omeprazole | Take 20 mg by mouth | | 0 | | | Activ | | (PRILOSEC) 20 mg | every morning | | | | | e | | capsule | (before breakfast). | | | | | | + + + +---------+------+------+-------+ | diclofenac | Apply 4 g topically | | 0 | | | Activ | | (VOLTAREN) 1% GEL | 3 times daily. | | | | | e | + + + +---------+------+------+-------+ | docusate sodium | Take 100 mg by mouth | | 0 | | | Activ | | (COLACE) 100 mg | Daily as needed for | | | | | e | | capsule | Constipation. | | | | | | + + + +---------+------+------+-------+ | levothyroxine | Take 100 mcg by | | 0 | 07/2 | | Activ | | (SYNTHROID) 100 mcg | mouth every morning | | | 0/20 | | e | | tablet | (before breakfast). | | | 18 | | | + + + +---------+------+------+-------+ | ADVAIR HFA 115-21 | INHALE 2 PUFFS BY | 1 | 3 | 11/0 | | Activ | | MCG/ACT inhaler | MOUTH TWICE DAILY | Inhaler | | 5/20 | | e | | | | | | 18 | | | + + + +---------+------+------+-------+ Active Problems + + + | Problem | Noted Date | + + + | COPD, moderate | 05/04/2017 | + + + Immunizations + + + + | Name [...] | + + +------+ + | No known problems | Brother | | | + + +------+ + | No known problems | Brother | | | + + [...] on file | | + + + + + + + | Job Start Date | Occupation | Industry | + + + + | Not on file | Not on file | Not on file | + + + + + + + + | Travel History | Travel Start | Travel End | + + + + + + | No recent travel history available. | + + Last Filed Vital Signs + + + + | Vital Sign | Reading | Time Taken | + + + + | Blood Pressure | 146/92 | 01/17/20181 PDT | + + + + | Pulse | 85 | 01/17/2018 132 PDT | + + + + | [...] | Body Mass Index | 33.39 | 01/17/20181320 PDT | + + + + Plan of Treatment +--------+---------+ + + + | Date | Type | Specialty | Care Team | Description | +--------+---------+ + + + | 11/02/ | Office | | Guzman Acosta, | | | 2018 | Visit | | MD Myranda Ramirez | | | | | | [place], [place] | | | | | | [place] | | | | | | [address] | | | | | | | [...] | + + + + + | Breast Cancer | | | | | Screening (Ages | 0 | | | | 50-74) | | | | + + + + + | Colorectal Cancer | | | | | Screening | 0 | | | | (Colonoscopy) | | | | + + + + + | Vaccine: Zoster (1 | | | | | of 2) | 0 | | | + + + + + | Vaccine: Influenza | | 05/04/2017, 05/12/2016 | | | (Season Ended) | 9 | | | + + + + + | Vaccine: | Completed | 12/20/2017 | | | Pneumococcal 19-64 | | | | | (PPSV23 only) Medium | | | | | Risk | | | | + + + + + Results Not on filefrom Last 3 Months Insurance + +--------+ +--------+ +---------+--------+ | Payer | Benefi | Subscriber | Effect | Phone | Address | Type | | | t Plan | ID | blayne | | | | | | / | | Dates | | | | | | Group | | | | | | + +--------+ +--------+ +---------+--------+ | [employer] | [employer] | [id number] | 12/13/19 | [phone] | | Medica | | MEDICAID HMO | HEALTH | | 14-Pre | 1 | | id | | | MDCD | | sent | | | | | | [place] | | | | | | + +--------+ +--------+ +---------+--------+ + +--------+ +--------+ + + | Guarantor Name | Accoun | Relation to | Date | Phone | Billing Address | | | t Type | Patient | of | | | | | | | | | | + +--------+ +--------+ + + | Caro Alvarez | Person | Self | [birth year] | [address] | | | al/Fam | | 1960 | [phone] | [address] [place], | | | param | | | 4 (Home) | [place] [address] | + +--------+ +--------+ + + Advance Directives Patient has advance care planning documents on file. For more information, please contact:[facility] [address]
--- OUTSIDE RECORDS SUMMARY | ~2018-09-27 | XMS | Clinical Summary ---
Demographics + + + | Address | [address] | | | [place] [address] | + + + | Home Phone | | + + + | Preferred Language | Unknown | + + + | Marital Status | Legally | + + + | Anabaptism Affiliation | Unknown | + + + | Race | Unknown | + + + | Ethnic Group | Unknown | + + + Author + + + | Author | [facility] | | | and [place] | + + + | Organization | [facility] | | [...] Team Providers + +------+ + | Care Solution Maker Name | Role | Phone | + [...] [place] | | | | | | [address] | | | | | | | [...] | [employer] | [employer] | [id number] | 12/13/19 | [phone] | | Medica [...] | | | 4 (Home) | [place] [address] | + +--------+ +--------+ + + Advance Directives Patient has advance care planning documents on file. For more information, please contact:[facility] [place] [address]
[~2018-09-27 18:28] MED LIST changes: +IPRAT-ALBUT 0.5-3 ML INH; +PREDNISONE20 MG PO; +TRUNEB NEBULIZ1 EACH INH
== END 2018-09-27 20:03 | disposition home or self-care (01) ==
LOC: ED 18:28
DX: S61.411A Laceration without foreign body of right hand, initial encounter (principal); W26.8XXA Contact with other sharp object(s), not elsewhere classified, initial encounter; J44.9 Chronic obstructive pulmonary disease, unspecified; I10 Essential (primary) hypertension; F32.9 Major depressive disorder, single episode, unspecified; Z87.891 Personal history of nicotine dependence; Z88.8 Allergy status to other drugs, medicaments and biological substances; Z79.899 Other long term (current) drug therapy; Z79.52 Long term (current) use of systemic steroids
CPT/HCPCS: 12002; 90471; 90715; 99282

== ENCOUNTER 2020-08-09 14:43 | Emergency (ER) | payer OTHER ==
[~2020-08-09] VITALS: Ht 157.5 cm; Wt 75.3 kg
--- OUTSIDE RECORDS SUMMARY | 2020-08-09 14:46 | XMS ---
PreManage Notification: JORDON RICO Security Wardsperson Events No recent Security Events currently on file CRITERIA MET - [facility] - Has Care Guidelines CARE PROVIDERS There are no care providers on record at this time. Guidelines Source: [facility] [place] Guidelines Date: 10/17/2019 Care Coordination: Member is not currently enrolled in Mental Health Services through [facility] services. If services are needed through [employer] please call: Karla [phone] [place]; [phone] Crisis [phone] E.DMarian VISIT COUNT (12 MO.) 1 [facility] TOTAL 1 NOTE: Visits indicate total known visits. ED/UCC VISIT TRACKING (12 MO.) 08/09/2020 14:[address] [facility] [place] TYPE: Emergency COMPLAINT: - ALTERED LOC INPATIENT VISIT TRACKING (12 MO.) No inpatient visits to display in this time frame [email or web address]
[2020-08-09] MEDS ORDERED: ONDANSETRON ODT8 MG PO (15:02)
[2020-08-09] MEDS ORDERED: CONSTULOSE10 GM/15 M PO (15:02)
--- NOTE | 2020-08-10 15:50 | EKG ---
[facility] [address] [place], [place] [address] Signed NSR T wave abnormality, consider inferior ischemia Abnormal ECG Confirmed by CLAUDE CASE DO ([id number]) on 08/10/2020 3:50:17 PM Electronically Signed By: CLAUDE CASE DO 08/10/20 1550 PATIENT NAME: JORDON RICO Electrocardiogram DATE OF : 60 PHYSICIAN: CLAUDE CASE DO REPORT #: [id number] REPORT IS CONFIDENTIAL AND NOT TO BE RELEASED WITHOUT AUTHORIZATION
== END 2020-08-09 15:16 | disposition left against medical advice (07) ==
LOC: ED 14:43
DX: F10.129 Alcohol abuse with intoxication, unspecified (principal); Y90.8 Blood alcohol level of 240 mg/100 ml or more; J44.9 Chronic obstructive pulmonary disease, unspecified; I10 Essential (primary) hypertension; Z87.891 Personal history of nicotine dependence; Z88.8 Allergy status to other drugs, medicaments and biological substances; Z79.899 Other long term (current) drug therapy
CPT/HCPCS: 82140; 93005; 93010; 99284-25

== ENCOUNTER 2021-03-02 11:21 | Emergency (ER) | payer OTHER ==
[~2021-03-02] VITALS: Ht 157.5 cm; Wt 76.1 kg
[~2021-03-02 11:21] MED LIST changes: +CONSTULOSE10 GM/15 M PO; +ONDANSETRON ODT8 MG PO
--- OUTSIDE RECORDS SUMMARY | 2021-03-02 11:24 | XMS ---
PreManage Notification: JORDON RICO Security National Accounts Sales Events No recent Security Events currently on file CRITERIA MET - [facility] - Has Care Guidelines CARE PROVIDERS DAVEY MONTIEL Physician Inbound Telemarketer 08/12/2020-Current PHONE: [phone] Guidelines Source: [facility] Guidelines Date: 10/17/2019 Care Coordination: Member is not currently enrolled in Mental Health Services through [employer]. If services are needed through [employer] please call: Karla [phone] [place]/Royce Majano\Miguel[facility]; [phone] Crisis [phone] Carli.Aiden VISIT COUNT (12 MO.) 2 [facility] TOTAL 2 NOTE: Visits indicate total known visits. ED/UCC VISIT TRACKING (12 MO.) 03/02/2021 11:22 [place] TYPE: Emergency COMPLAINT: - SOB,COUGH,GREEN FLEM 08/09/2020 14:43 [place] [place] TYPE: Emergency COMPLAINT: - ALTERED LOC DIAGNOSES: - Other middle or intermediate school principal (current) drug therapy - Personal history of nicotine dependence - Chronic obstructive pulmonary disease, unspecified - Blood alcohol level of 240 mg/100 ml or more - Alcohol abuse with intoxication, unspecified - Essential (primary) hypertension - Allergy status to other drugs, medicaments and biological substances INPATIENT VISIT TRACKING (12 MO.) No inpatient visits to display in this time frame [email or web address]
[2021-03-02] MEDS ORDERED: EUTHYROX137 MCG PO (13:01)
[2021-03-02] MEDS ORDERED: BUSPIRONE HCL15 MG PO (13:01)
[2021-03-02] MEDS ORDERED: ZITHROMAX250 MG PO (15:30)
[2021-03-02] MEDS ORDERED: PREDNISONE20 MG PO (15:30)
--- NOTE | 2021-03-02 18:11 | EKG ---
[facility] [address] [facility] [place] [address] Signed Normal sinus rhythm Rightward axis T wave abnormality, consider inferolateral ischemia Abnormal ECG When compared with ECG of 09-AUG-2020 15:10, Previous ECG has undetermined rhythm, needs review Nonspecific T wave abnormality, improved in Anterior leads QT has lengthened Confirmed by MARJORIE LYN MD ([id number]) on 03/02/2021 6:10:48 PM Electronically Signed By: MARJORIE LYN MD 03/02/211809 PATIENT NAME: JORDON RICO Electrocardiogram DATE OF : 60 PHYSICIAN: MARJORIE LYN MD REPORT #: [id number] REPORT IS CONFIDENTIAL AND NOT TO BE RELEASED WITHOUT AUTHORIZATION
== END 2021-03-02 15:35 | disposition home or self-care (01) ==
LOC: ED 11:21
DX: J44.1 Chronic obstructive pulmonary disease with (acute) exacerbation (principal); Z20.822 Contact with and (suspected) exposure to COVID-19; I10 Essential (primary) hypertension; Z87.891 Personal history of nicotine dependence; Z88.8 Allergy status to other drugs, medicaments and biological substances; Z79.899 Other long term (current) drug therapy
CPT/HCPCS: 71045; 80053; 83735; 84484; 85025; 93005; 93010; 94640; 96374; 99285-25; C9803; J2930; U0003